=== PATIENT | male | born 1995 | race Caucasian/White ===

== ENCOUNTER 2022-03-13 17:01 | Emergency (ER) | payer OTHER ==
[~2022-03-13] VITALS: Ht 170.2 cm; Wt 82.0 kg
[2022-03-13 18:31] VITALS: BP 137/72
== END 2022-03-13 18:34 | disposition home or self-care (01) ==
LOC: ER 17:01
DX: M54.50 Low back pain, unspecified (principal)
CPT/HCPCS: 93005; 99283